=== PATIENT | female | born 1975 | race African-American/Black ===

== ENCOUNTER 2018-06-30 07:37 | Emergency (ER) | payer SELFPAY | END 2018-06-30 08:30 | disposition home or self-care (01) | LOC: NAV ERS 07:37 | DX: R21 Rash and other nonspecific skin eruption (principal); I10 Essential (primary) hypertension; J45.909 Unspecified asthma, uncomplicated; F17.210 Nicotine dependence, cigarettes, uncomplicated; Z79.899 Other long term (current) drug therapy | CPT/HCPCS: 99282 ==

== ENCOUNTER 2020-01-06 11:47 | Emergency (ER) | payer SELFPAY ==
[2020-01-06] MEDS ORDERED: HYDROcodone/Acetaminophen 5/325 mg Tablet ONE (12:16)
== END 2020-01-06 12:20 | disposition home or self-care (01) ==
LOC: NAV ERS 11:47
DX: K04.4 Acute apical periodontitis of pulpal origin (principal); K02.9 Dental caries, unspecified; K03.81 Cracked tooth; I10 Essential (primary) hypertension; Z79.899 Other long term (current) drug therapy
CPT/HCPCS: 99282